=== PATIENT | female | born 1965 | race Asian ===

== ENCOUNTER 2020-08-31 07:42 | Inpatient (IN) | payer MEDICAID ==
[2020-08-26 09:40] LABS: BILIRUBIN, URINE NEGATIVE (NEGATIVE); COLOR,URINE PALE YELLOW; GLUCOSE, URINE (UA) NEGATIVE (NEGATIVE); KETONES,URINE NEGATIVE (NEGATIVE); LEUKOCYTE ESTERASE ,URINE NEGATIVE (NEGATIVE); NITRITE,URINE NEGATIVE (NEGATIVE); PH,URINE 5 (4.5-8.0); PROTEIN,URINE NEGATIVE (NEGATIVE); UROBILINOGEN,URINE NORMAL MG/DL (0.0-1.0)
[2020-08-26 09:41] LABS: APPEARANCE,URINE CLEAR
[2020-08-26 09:48] LABS: INR 0.9 (0.9-1.1)
[2020-08-26 09:55] LABS: BASOPHILS % (AUTO) 1.7 % (0.0-2.0); EOSINOPHILS % (AUTO) 2.9 % (0.0-3.0); HEMATOCRIT 44.8 % (37.0-47.0); HEMOGLOBIN 14.1 G/DL (12.0-16.0); LYMPHOCYTES % (AUTO) 47.5 % (20.0-45.0); MEAN CORPUSCULAR VOLUME 84 FL (80-99); MONOCYTES % (AUTO) 4.3 % (1.0-10.0); NEUTROPHILS % (AUTO) 43.5 % (45.0-75.0); PLATELET COUNT 313 K/UL (150-450); RED BLOOD COUNT 5.33 M/UL (4.20-5.40); RED CELL DISTRIBUTION WIDTH 13.9 % (11.6-14.8); WHITE BLOOD COUNT 7.5 K/UL (4.8-10.8)
[2020-08-26 09:58] LABS: ANION GAP 8 mmol/L (5-15); BLOOD UREA NITROGEN 19 mg/dL (7-18); CALCIUM 10.3 MG/DL (8.5-10.1); CARBON DIOXIDE 29 MMOL/L (21-32); CHLORIDE 103 MMOL/L (98-107); CREATININE 0.9 MG/DL (0.55-1.30); POTASSIUM 4.2 MMOL/L (3.5-5.1); SODIUM 140 MMOL/L (136-145)
--- NOTE | 2020-08-26 14:40 | Diagnostic Imaging Report ---
Indication: Cough Technique: 2 views of the chest Comparison: None Findings: Lungs and pleural spaces are clear. The heart size is normal. The bones are unremarkable. No significant interim change. Impression: Negative
--- NOTE | 2020-08-29 11:43 | Pre-op HX & Phy Repo 2 SIG ---
DATE OF ADMISSION: 08/31/2020 SCHEDULED FOR SURGERY: August 31, 2020. HISTORY OF PRESENT ILLNESS: The patient is a 55-year-old female who presented recently with a bloody left nipple discharge, both spontaneous and evoked. She underwent mammogram and ultrasound May 30, 2020. She has also been having pain in the left breast. Mammogram and ultrasound revealed a mass of abnormal tissue and tortuous dilated ducts between 12 and 3 o'clock. She subsequently underwent a bilateral MRI of the breast with contrast on June 20, 2020. The right breast is unremarkable. A left breast revealed an abnormal area from 10 o'clock to 3 o' clock involving the upper inner quadrant and upper outer quadrant and subareolar with a span of 12.6 cm anterior to posterior from nipple to mid posterior depth and 6.5 cm transverse. Core biopsy was performed August 01, 2020 of the left breast at 2 o'clock 4 cm from the nipple and revealed ductal carcinoma in situ. Core biopsy of the left axillary lymph node revealed no evidence of carcinoma or metastatic disease. The patient was advised that the options were a partial mastectomy with bracketing needle localization versus left breast total mastectomy. After further review with the radiologists and with the total transverse span now measured at 12.6 centimeters, it was felt by all physicians that the patient needed to undergo a total mastectomy. This was explained to the patient including the risk of finding invasive cancer in her breast and a partial mastectomy would likely result in positive margins. She has agreed to undergo total mastectomy. PAST MEDICAL HISTORY: MEDICATIONS: She takes a statin for elevated cholesterol. ALLERGIES: None. OPERATIONS: None. REVIEW OF SYSTEMS: She is nulliparous. Her last menstrual period was at age 44. PHYSICAL EXAMINATION: VITAL SIGNS: The patient is 5 feet and 3 inches, 170 pounds. Vital signs within normal limits. HEENT: Within normal limits. LUNGS: Clear. HEART: Regular rhythm. BREASTS: Large and ptotic. There is no palpable mass in either breast. There is no axillary or supraclavicular lymphadenopathy. ABDOMEN: Soft. PELVIC: Per primary care. RECTAL: Per primary care. EXTREMITIES: Without edema. NEUROLOGIC: Physiologic. IMPRESSION: Extensive ductal carcinoma in situ, left breast with bloody nipple discharge and pain. PLAN: Left breast total mastectomy. DISCUSSION: I have had a full discussion with the patient regarding the nature of her condition, the nature of the surgery, indications, alternatives, options, and risks including bleeding, infection, flap necrosis, need for additional procedures or treatments based on final pathology, scarring, distortion of the chest wall, neuritis or neuralgia, and all questions have been answered. She understands and agrees to proceed. Don Chapis Milton DR: Shanon JOB#: [id number] CC: KB
--- NOTE | 2020-08-30 12:05 | Cardiology Report ---
APPROVED REPORT EKG Measurement Heart [id number] <Conclusion> Normal sinus rhythm Normal ECG
[~2020-08-31] VITALS: Ht 157.5 cm; Wt 78.0 kg
[2020-08-31] VITALS (12 sets, daily range): BP systolic 90–136; BP diastolic 50–81
[~2020-08-31 07:42] MED LIST: SIMVASTATIN10 MG ORAL
[2020-08-31] MEDS ORDERED: Rocuronium Bromide 50mg/5ml Inj IV ONE (07:58)
[2020-08-31] MEDS ORDERED: Succinylcholine 20mg/ml 10ml vial ONE (07:58)
[2020-08-31] MEDS ORDERED: fentaNYL 100 mcg/2 mL IV ONE (08:05)
[2020-08-31] MEDS ORDERED: Midazolam 2mg/2ml Inj ONE (08:05)
[2020-08-31] MEDS ORDERED: Lidocaine 1% MPF 10mg/ml 5ml ONE (08:10)
[2020-08-31] MEDS ORDERED: Ketorolac 30mg Inj ONE (08:11)
--- NOTE | 2020-08-31 08:16 | Pre-Procedure Note/Attestation ---
Pre-Procedure Note/Attestation Complete Prior to Procedure Planned Procedure: left Procedure Narrative: left total mastectomy Indications for Procedure Pre-Operative Diagnosis: extensive ductal carcinoma in situ left breast Attestation I attest that I discussed the nature of the procedure; its benefits; risks and complications; and alternatives (and the risks and benefits of such alternat char), prior to the procedure, with the patient (or the patient's legal publications sales representative). I attest that, if there was a reasonable possibility of needing a blood transfusion, the patient (or the patient's legal publications sales representative) was given the [facility] standardized written summary, pursuant to the [place] Blood Safety Act ([place] Health and Safety Code # 1645, as amended). I attest that I re-evaluated the patient just prior to the surgery and that there has been no change in the patient's H&P, except as documented below: none Lyle Milton MD Aug 31, 2020 08:16
[2020-08-31] MEDS ORDERED: Bacitracin 50000 Units Vial ONE (08:28)
--- NOTE | 2020-08-31 08:28 | Anethesia Preoperative Eval ---
Anesthesia Pre-op PMH/ROS General Date of Evaluation: Aug 31, 2020 Time of Evaluation: 08:23 Anesthesiologist: Benjamin ASA Score: ASA 2 Mallampati Score Class I : Soft palate, uvula, fauces, pillars visible Class II: Soft palate, uvula, fauces visible Class III: Soft palate, base of uvula visible Class IV: Only hard plate visible Mallampati Classification: Class II Surgeon: Yoan Diagnosis: L breast CA Surgical Procedure: MAstectomy Anesthesia History: none Family History: no anesthesia problems Allergies: Coded Allergies: No Known Allergies (Unverified , 08/29/20) Medications: see eMAR Patient NPO?: Yes NPO Date: Aug 31, 2020 Past Medical History Cardiovascular: Reports: HTN - borderline; Denies: CAD, VA, valve dz, arrhythmia, other Pulmonary: Denies: asthma, COPD, SHARON, other Gastrointestinal/Genitourinary: Reports: GERD; Denies: CRI, ESRD, other Neurologic/Psychiatric: Reports: depression/anxiety; Denies: dementia, CVA, TIA, other Endocrine: Denies: DM, hypothyroidism, steroids, other HEENT: Denies: cataract (L), cataract (R), glaucoma, TE-MOAK (L), TE-MOAK (R), other Hematology/Immune: Denies: anemia, DVT, bleeding disorder, other Musculoskeletal/Integumentary: Denies: OA, RA, DJD, DDD, edema, other Other: other - overweight PMH Narrative: as above PSxH Narrative: None Anesthesia Pre-op Phys. Exam Physician Exam Constitutional: NAD Neurologic: CN 2-12 intact Cardiovascular: RRR, no M/R/G Respiratory: CTA Gastrointestinal: S/NT/ND Airway Exam Mallampati Score: Class II MO: limited Neck: short ROM: limited Teeth: intact Dentures: no upper, no lower Anesthesia Pre-op A/P Labs see chart Studies Pre-op Studies: EKG - SR Risk Assessment & Plan Assessment: ASA 2 Plan: GA with ETT Status Change Before Surgery: No Pre-Antibiotics Drug: Ancef 2gr. Given Within 1 Hr of Incision: Yes Time Given: 09:36 Jorge Alexander MD Aug 31, 2020 08:28
[2020-08-31] MEDS ORDERED: Midazolam 2mg/2ml Inj IVP PRN (08:30)
[2020-08-31] MEDS ORDERED: Ketorolac 30mg Inj IV PRN (08:30)
[2020-08-31] MEDS ORDERED: Hydromorphone 0.5mg/0.5ml inj IVP PRN (08:30)
[2020-08-31] MEDS ORDERED: DiphenhydrAMINE 50mg/ml Inj IVP PRN (08:30)
[2020-08-31] MEDS ORDERED: LR 1000ml 1,000 ML IVLG SCH (08:30)
[2020-08-31] MEDS ORDERED: Meperidine 25mg/1ml Inj (FOR RIGORS ONLY) IV PRN (08:30)
[2020-08-31] MEDS ORDERED: Morphine Sulfate 10mg/ml Inj ONE (09:46)
[2020-08-31] MEDS ORDERED: Neostigmine 1mg/ml 10ml Inj ONE (09:49)
[2020-08-31] MEDS ORDERED: Glycopyrrolate 0.2mg/ml 1ml Vial ONE (09:49)
--- NOTE | 2020-08-31 11:26 | Brief Operative Note ---
Immediate Post Operative Note Operative Note Pre-op Diagnosis: extensive ductal carcinoma in situ left breast Procedure: left total mastectomy Post-op Diagnosis: same Post-op Diagnosis: same as pre-op Findings: consistent w/pre-op dx studies Surgeon: azam Anesthesiologist: jl Anesthesia: general Specimen: yes - left breast with axillary tail Complications: none Condition: stable Fluids: see anesthesia record Estimated Blood Loss: minimal Drains: CAITLYN - CAITLYN x 2 Implant(s) used?: No Lyle Milton MD Aug 31, 2020 11:26
[2020-08-31] MEDS ORDERED: HYDROcodone/Acetamin 5/325 tab ORAL PRN (11:30)
[2020-08-31] MEDS ORDERED: Metoclopramide 10mg/2ml Inj IVP PRN (11:30)
--- NOTE | 2020-08-31 11:35 | Immediate Post-Op Evaluation ---
Immediate Post-Op Evalulation Immediate Post-Op Evalulation Procedure: L breast total mastectomy Date of Evaluation: Aug 31, 2020 Time of Evaluation: 11:34 IV Fluids: 1000 Blood Products: none Estimated Blood Loss: 100 Urinary Output: none Blood Pressure Systolic: 102 Blood Pressure Diastolic: 56 Pulse Rate: 72 Respiratory Rate: 20 O2 Sat by Pulse Oximetry: 99 Temperature (Fahrenheit): 97.5 Pain Score (1-10): 1 Nausea: No Vomiting: No Complications none Patient Status: reacts, patent, extubated, none Hydration Status: adequate Jorge Alexander MD Aug 31, 2020 11:35
--- NOTE | 2020-08-31 12:40 | NUR ---
NURSE NOTES: Received pt from PACU and report from SONJA Moody. Pt was transferred via hospital bed. Pt awake, alert and oriented, verbally responsive. All belongings were accounted for. Noted CAITLYN x2 with compressed on left breast. Surgical dressing clean and intact. IV on R hand intact and patent. SCDs on. Vitals stable. No respiratory distress noted. No complaints of pain at this time. Oriented pt to room. Provided safe environment. Call light within reach. Bed in low position and locked. Will continue to monitor.
--- NOTE | 2020-08-31 12:59 | Operative Note - Dictated ---
DATE OF OPERATION: 08/31/2020 SURGEON: Lyle Milton MD. OIL FIELD LABORER: None. ANESTHESIOLOGIST: Jorge Alexander MD. TYPE OF ANESTHESIA: General. PREOPERATIVE DIAGNOSIS: Extensive ductal carcinoma in situ, left breast. POSTOPERATIVE DIAGNOSIS: Extensive ductal carcinoma in situ, left breast. OPERATION PERFORMED: Left breast total mastectomy including the axillary tail. PROCEDURE: The patient was taken to the operating room and under general anesthesia with sequential compression device stockings in place, she was prepped and draped in usual fashion. The outlines of the breast were marked and then a Matias transverse incision was made going elliptically around the nipple-areolar complex. Flaps were dissected circumferentially with cautery to the sternum medially, the clavicle superiorly, the latissimus dorsolaterally and the chest wall inferiorly. Then starting from medial to lateral, the breast was resected including the pectoralis fascia as the deep margin. The axillary tail was included into the lower axilla using the [employer] vessel sealing electrosurgical device. There were no palpable or visible enlarged lymph nodes. The specimen was removed from the field and given for pathology. The field was copiously irrigated with sterile water followed by antibiotic solution. Hemostasis was carefully and meticulously achieved through stab incisions inferior and lateral, two 19 mm round Scout drains were placed, one into the axilla and one under the flaps. After ascertaining that hemostasis had been secured, the incision was closed with continuous 2-0 Vicryl deep dermal subcutaneous suture followed by skin jolly. The Scout drain and suction bulbs were charged and remained airtight with good apposition of the flaps. Dry sterile dressings were applied. Final sponge and needle counts were correct. The patient tolerated the procedure well and left the operating room in stable condition. Lyle Milton M.D. DR: JUANY/MARAL JOB#: [id number] CC:
[2020-08-31] MEDS: D5 1/2NS w/KCl 20mEq 1,000 ML IV SCH ×2 (14:45→23:54)
--- NOTE | 2020-08-31 17:00 | NUR ---
NURSE NOTES: Pt reported that pt had feeling breathing stopped some moment during sleep. MD aware and obtained new order to decrease Dilaudid to 0.5mg. Order carried out. Home med will be continued from tomorrow per MD.
[2020-08-31] MEDS: ceFAZolin sod 1 GM in D5W 55 ML IV SCH (17:28)
[2020-08-31] MEDS ORDERED: Hydromorphone 0.5mg/0.5ml inj SUBQ PRN (17:30)
--- NOTE | 2020-08-31 19:35 | NUR ---
NURSE HAND-OFF: Important Events on Shift:[Pt c/o respiratory depression after dilaudid 1mg given, dose decreased. No void yet, endorsed to customer service sales associate nurse, CAITLYN drain output 50cc, 42 cc] Patient Status: [] Diet: [reg] Pending Orders: [] Pending Results/Labs:[] Pending MD notification:[] Latest Vital Signs: Temperature 97.9 , Pulse 59 , B/P 96 /55 , Respiratory Rate 18 , O2 SAT 96 , Nasal Cannula, O2 Flow Rate 3.0 . Vital Sign Comment: [stable] Latest Nur Fall Score: 35 Fall Risk: Medium Risk Safety Measures: Call light Within Reach, Bed Alarm Zone 1, Side Rails Side Rails x2, Bed position Low and Locked. Fall Precautions: Report given to [SONJA Loyola].
--- NOTE | 2020-08-31 19:36 | NUR ---
NURSE NOTES: Received patient in no apparent distress. A&OX4. IV site patent and intact. Dressing noted on left breast with 2x CAITLYN, dry and intact. Bed in lowest position. Call light within reach. Will continue to monitor.
--- NOTE | 2020-08-31 22:09 | NUR ---
NURSE NOTES: performed straight cath, obtained 1100ml urine. Addendum: 09/01/20 at 3152 by ABHISHEK HAN RN RN Disregard this note. Wrong patient.
--- NOTE | 2020-08-31 22:29 | NUR ---
NURSE NOTES: Patient void.
--- NOTE | 2020-08-31 23:56 | NUR ---
NURSE NOTES: Notify Dr. Milton regarding BP 84/50, HR 62. No new order at this time. Obtained ok change to [place] 7.5/325 1tab q4hr prn from [place] 5/325 1 tab q4hr prn order due to lack of stock in pharmacy.
[2020-09-01] VITALS (7 sets, daily range): BP systolic 82–144; BP diastolic 42–71
[2020-09-01] MEDS: ceFAZolin sod 1 GM in D5W 55 ML IV SCH (01:19)
[2020-09-01] MEDS: HYDROcodone/Acetamin 7.5/325 tab ORAL PRN ×5 (03:33→22:01)
--- NOTE | 2020-09-01 07:41 | NUR ---
NURSE HAND-OFF: Important Events on Shift: BP was 82/47 HR [address] Milton. BP 98/60 HR 60 at 0400. CAITLYN #1 output: 70. CAITLYN #2 output: 53. Patient Status: Diet: Regular Pending Orders: Pending Results/Labs: Pending MD notification: Latest Vital Signs: Temperature 97.9 , Pulse 60 , B/P 98 /60 , Respiratory Rate 20 , O2 SAT 98 , Nasal Cannula, O2 Flow Rate 3.0 . Vital Sign Comment: Latest Nur Fall Score: 35 Fall Risk: Medium Risk Safety Measures: Call light Within Reach, Bed Alarm Zone 1, Side Rails Side Rails x2, Bed position Low and Locked. Fall Precautions: Yellow Socks Door Sign Patient Fall Education Report given to Dangelo CASILLAS.
--- NOTE | 2020-09-01 07:45 | NUR ---
NURSE NOTES: Received report from SONJA Loyola. Patient awake in bed, no apparent distress. Breathing even and unlabored. IV site patent and intact. Dressing noted on left breast with 2x CAITLYN, clean, dry and intact. Bed in lowest position. Call light within reach. Will continue to monitor.
[2020-09-01] MEDS: D5 1/2NS w/KCl 20mEq 1,000 ML IV SCH (09:10)
--- NOTE | 2020-09-01 10:21 | General Progress Note ---
Progress Note Progress Note AVSS Left mastectomy incision clean, flaps viable JPs 120 + 95 serosang since surgery Pain controlled with Dilaudid SQ and now [place] Imp: Stable with high volume drain output Plan: Continue in-patient care teach patient care of drains f/u labs ambulate with assistance BID Lyle Milton MD Sep 01, 2020 10:21
--- NOTE | 2020-09-01 12:06 | 48 Hour Post Anesthesia Eval ---
Post Anesthesia Evaluation Procedure: L breast total mastectomy Date of Evaluation: Sep 01, 2020 Time of Evaluation: 12:04 Blood Pressure Systolic: 132 0: 74 Pulse Rate: 68 Respiratory Rate: 18 Temperature (Fahrenheit): 97.6 O2 Sat by Pulse Oximetry: 98 Airway: patent Nausea: No Vomiting: No Pain Intensity: 2 Hydration Status: adequate Cardiopulmonary Status: stable Mental Status/LOC: patient returned to baseline Follow-up Care/Observations: n/a Post-Anesthesia Complications: none Follow-up care needed: ready to discharge Jorge Alexander MD Sep 01, 2020 12:06
[2020-09-01] MEDS ORDERED: Miralax 17gm pkt ORAL PRN (16:00)
--- NOTE | 2020-09-01 18:10 | NUR ---
NURSE NOTES: Pt able to empty CAITLYN drain properly with supervision by nurse. CAITLYN output #1 was 45cc #2 was 10cc
--- NOTE | 2020-09-01 19:24 | NUR ---
NURSE HAND-OFF: Important Events on Shift:[Waiting for CRI placement, Covid Rapid done today, negative] Patient Status: [] Diet: [reg] Pending Orders: [] Pending Results/Labs:[] Pending MD notification:[] Latest Vital Signs: Temperature 97.7 , Pulse 64 , B/P 144 /67 , Respiratory Rate 20 , O2 SAT 98 , Nasal Cannula, O2 Flow Rate 3.0 . Vital Sign Comment: [stable] Latest Nur Fall Score: 35 Fall Risk: Medium Risk Safety Measures: Call light Within Reach, Bed Alarm Zone 1, Side Rails Side Rails x2, Bed position Low and Locked. Fall Precautions: Yellow Socks Door Sign Patient Fall Education Report given to [SONJA Loyola]. Addendum: 09/01/20 at 1927 by Dangelo Schofield RN disregard this note, wrong patient.
--- NOTE | 2020-09-01 19:27 | NUR ---
NURSE HAND-OFF: Important Events on Shift:[Pt able to empty CAITLYN drain properly, New order for sore throat and bowel management, Pain control well with [place] 7.5] Patient Status: [] Diet: [reg] Pending Orders: [] Pending Results/Labs:[] Pending MD notification:[] Latest Vital Signs: Temperature 97.7 , Pulse 64 , B/P 144 /67 , Respiratory Rate 20 , O2 SAT 98 , Nasal Cannula, O2 Flow Rate 3.0 . Vital Sign Comment: [stable] Latest Nur Fall Score: 35 Fall Risk: Medium Risk Safety Measures: Call light Within Reach, Bed Alarm Zone 1, Side Rails Side Rails x2, Bed position Low and Locked. Fall Precautions: Yellow Socks Door Sign Patient Fall Education Report given to [SONJA Loyola].
--- NOTE | 2020-09-01 19:30 | NUR ---
NURSE NOTES: Received patient in no apparent distress. A&OX4. IV site patent and intact. Dressing noted on left breast with 2x CAITLYN, dry and intact. Instruction was given regarding emptying CAITLYN drainage bag, patient fully understood. Bed in lowest position. Call light within reach. Will continue to monitor.
[2020-09-01] MEDS ORDERED: Atorvastatin 20mg tab ORAL SCH (21:00)
[2020-09-02] VITALS: BP 93/63
[2020-09-02 04:00] VITALS: BP 108/72
[2020-09-02] MEDS: HYDROcodone/Acetamin 7.5/325 tab ORAL PRN ×2 (05:03→11:25)
[2020-09-02 06:52] LABS: CHLORIDE 107 MMOL/L (98-107); POTASSIUM 3.9 MMOL/L (3.5-5.1); SODIUM 141 MMOL/L (136-145)
[2020-09-02 06:53] LABS: ANION GAP 7 mmol/L (5-15); BLOOD UREA NITROGEN 15 mg/dL (7-18); CALCIUM 8.8 MG/DL (8.5-10.1); CARBON DIOXIDE 27 MMOL/L (21-32); CREATININE 0.9 MG/DL (0.55-1.30)
[2020-09-02 07:07] LABS: BASOPHILS % (AUTO) 1.4 % (0.0-2.0); EOSINOPHILS % (AUTO) 4.4 % (0.0-3.0); HEMATOCRIT 35.1 % (37.0-47.0); HEMOGLOBIN 11.3 G/DL (12.0-16.0); LYMPHOCYTES % (AUTO) 45.4 % (20.0-45.0); MEAN CORPUSCULAR VOLUME 84 FL (80-99); MONOCYTES % (AUTO) 5.8 % (1.0-10.0); NEUTROPHILS % (AUTO) 43.1 % (45.0-75.0); PLATELET COUNT 209 K/UL (150-450); RED BLOOD COUNT 4.19 M/UL (4.20-5.40); RED CELL DISTRIBUTION WIDTH 13.9 % (11.6-14.8); WHITE BLOOD COUNT 7.4 K/UL (4.8-10.8)
[2020-09-02 08:00] VITALS: BP 115/87
[2020-09-02] MEDS ORDERED: NS Irrig 1000ml ONE (08:05)
[2020-09-02] MEDS ORDERED: Sorbitol 2000ml Irrigation IRRIG ONE (08:05)
[2020-09-02] MEDS ORDERED: LR 1000ml ONE (08:05)
[2020-09-02] MEDS ORDERED: Sterile Water Irrig 2000ml IRRIG ONE (08:05)
--- NOTE | 2020-09-02 08:06 | NUR ---
NURSE HAND-OFF: Important Events on Shift: CAITLYN#1 output: 60ml, CAITLYN#2 output: 40ml. Patient still no bowel movement, encouraged ambulate. Patient Status: Diet: Pending Orders: Pending Results/Labs: Pending MD notification: Latest Vital Signs: Temperature 97.7 , Pulse 60 , B/P 108 /72 , Respiratory Rate 20 , O2 SAT 99 , Nasal Cannula, O2 Flow Rate 3.0 . Vital Sign Comment: Latest Nur Fall Score: 35 Fall Risk: Medium Risk Safety Measures: Call light Within Reach, Bed Alarm Zone 1, Side Rails Side Rails x2, Bed position Low and Locked. Fall Precautions: Yellow Socks Door Sign Patient Fall Education Report given to Rosalva CASILLAS.
--- NOTE | 2020-09-02 08:08 | NUR ---
NURSE NOTES: patient awake and alert and oriented,respiration unlabored.Left breast surgical site clean and intact.J/P x2 in place with small amount of bloody drainage noted. patient sitting up in bed and eating breakfast.Call light within reach.
[2020-09-02 12:00] VITALS: BP 117/61
[2020-09-02] MEDS ORDERED: Miralax 17gm pkt ORAL PRN (13:45)
--- NOTE | 2020-09-02 14:19 | General Progress Note ---
Progress Note Progress Note Doing well with c/o constipation, pain decreasing Mastectomy incision clean and dry CAITLYN drains 105 + 50 Labs okay Got miralax + dulcolax supp Imp: Stable and patient comfortable going home - she has learned care of CAITLYN drains Plan: Discharge with supplies/limitations/instructions provided/discussed Rx [place] / #30 f/u office 09/06 for drain removal Lyle Milton MD Sep 02, 2020 14:19
[2020-09-02 16:00] VITALS: BP 140/88
--- NOTE | 2020-09-02 17:16 | NUR ---
NURSE NOTES: Discharge at this time,with discharge instructions given.Patient has her personal belongings.IV removed and ID hospital band removed.Patient J/P drains x2 remains intact. Patient knows how to empty J/P drains and aware to record amount of J/P drainage. Patient has appointment with DR Milton on 09/06/30.Supply given to patient.Patient accompany down to private vehicle,patient friend here to take patient home.
--- NOTE | 2020-09-06 09:30 | Discharge Summary ---
Discharge Summary Discharge Summary _ Date of admission: 08/31/2020 Date of discharge: 09/02/[address] Milton History of Present Illness and Brief Hospital Course Ms. Montoya is a 55-year-old female who presented to [facility] for a scheduled surgery. Previously, she had a bloody left nipple discharge, both spontaneous and evoked. Patient underwent mammogram and ultrasound on 05/30/2020 which revealed a mass of abnormal tissue and tortuous dilated ducts between 12 and 3 o'clock. She subsequently underwent a bilateral MRI of the breast with contrast on 06/20/2020. The right breast was unremarkable. The left breast revealed an abnormal area from 10 to 3 o'clock involving the upper inner quadrant and upper outer quadrant and subareolar with a span of 12.6 cm anterior to posterior from the nipple to the mid posterior depth and 6.5 cm transverse. Core biopsy of the left breast at 2 o'clock 4 cm from the nipple revealed ductal carcinoma in situ. Core biopsy of the left axillary lymph node revealed no evidence of carcinoma or metastatic disease. Patient elected to undergo a total mastectomy. Patient was taken to the OR and left breast total mastectomy including the axillary tail was performed. Patient tolerated the procedure well and left the operating room in stable condition. Patient was monitored closely after the surgery. Left breast surgical site was clean and intact. Patient began tolerating diet. Patient was instructed on how to record the amount of drainage and empty the CAITLYN drains. Patient was scheduled for a follow-up appointment with Dr. Milton on 09/06/2020. Supply was given to the patient. Patient was medically stable for discharge and was discharged home on 09/02/2020. Consultants: None Discharge Condition Stable Discharge Activity As tolerated Discharge Diet Regular Final diagnoses Extensive ductal carcinoma in situ, left breast s/p left breast total mastectomy including the axillary tail I have been assigned to dictate discharge summary for this account. I was not involved in the patient's management Cristino Barger Sep 06, 2020 09:30
== END 2020-09-02 17:20 | disposition home or self-care (01) | DRG 362 ==
LOC: SUR 07:42 → EDBD 09:00 → 2E 12:26
PROC: 07T60ZZ Resection of Left Axillary Lymphatic, Open Approach (ICD-10-PCS; 2020-08-31)
PROC: 0HTU0ZZ Resection of Left Breast, Open Approach (ICD-10-PCS; principal; 2020-08-31 09:00)
DX: C50.812 Malignant neoplasm of overlapping sites of left female breast (principal); E78.00 Pure hypercholesterolemia, unspecified
CPT/HCPCS: 36415; 71046; 80048; 81003; 85025; 85610; 85730; 93005; 94003; 94150; J2180; J2250; J2710